=== PATIENT | female | born 1960 | race American Indian/Alaskan Native ===

== ENCOUNTER 2017-06-24 10:51 | Outpatient (CLI) | payer OTHER ==
--- NOTE | 2017-06-24 11:50 | Mammography Report ---
BILATERAL MAMMOGRAM with CAD: HISTORY: Cancer screening. Comparison study is dated May 22, 2016. FINDINGS: There are scattered fibroglandular densities (approximately 25%-50% glandular). No mass, distortion, suspicious calcification, or skin change is seen. IMPRESSION: Negative mammogram. There is no mammographic evidence of malignancy. RECOMMENDATION: Follow-up per ACS guidelines. BI-RADS CATEGORY: 1 = Negative ACR BI-RADS MAMMOGRAPHIC CODES: 0 = Needs additional imaging evaluation; 1 = Negative; 2 = Benign; 3 = Probably benign; 4 = Suspicious; 5 = Malignant; 6 = Known biopsy-proven malignancy COMMENT: 1. Dense breast tissue, i.e., adenosis, fibrocystic changes, etc., may obscure an underlying neoplasm. 2. Approximately 10% of cancers are not detected with mammography. 3. A negative mammography report should not delay biopsy if a clinically suspicious mass is present. COMMENT: Patient follow-up letters are generated in [employer].
== END 2017-06-24 10:52 | disposition home or self-care (01) ==
LOC: MAMMO 10:51
PROVIDERS: ATTEND Family Medicine
DX: Z12.31 Encounter for screening mammogram for malignant neoplasm of breast (principal)
CPT/HCPCS: 77067; G0202

== ENCOUNTER 2017-10-23 17:27 | Emergency (ER) | payer OTHER ==
[2017-10-23 18:02] VITALS: BP 170/80
--- NOTE | 2017-10-23 18:57 | Emergency Department Report ---
HPI - General Chief Complaint: Upper Respiratory Infection Time Seen by Provider: 10/23/17 18:53 - HPI HPI: Ms. Nguyen presents with fatigue, IBS symptoms and chest soreness. For 1 month she's recovered from the flu. She has jaw malaise. She has been followed by her PCP for IBS symptoms referred to a infection control practitioner. SHe is also had mild intermittent nipple soreness. Mild to moderate symptoms occurred one month ago. She just been sick for 1 month she explains. No alleviating or precipitating factors. ED Past Medical Hx - Past Medical History Hx Hypertension: Yes Hx Diabetes: Yes Hx Psychiatric Treatment: Yes (depression, PTSD) Additional medical history: High Cholesterol. Over active bladder - Surgical History Additional Surgical History: hyst. - Social History Smoking Status: Never Smoker Substance Use Type: None - Medications Home Medications: Home Medications Medication Instructions Recorded Confirmed Last Taken Type HYDROcodone/APAP 5-325 [[place] 1 each PO Q6HR PRN #14 tablet 12/30/14 Unknown Rx 5/325] Azithromycin [Zithromax Z-TREVOR] 250 mg PO DAILY #6 tab 08/12/15 Unknown Rx Promethazine /Codeine 5 ml PO Q6H PRN #120 ml 08/12/15 Unknown Rx [Phenergan/Codeine 6.25-10 mg/5Ml] ED Review of Systems ROS: Stated complaint: FLU LIKE SYMPTOMS Other details as noted in HPI Comment: All other systems reviewed and negative Constitutional: malaise, weakness. denies: fever Respiratory: denies: cough Physical Exam - Physical Exam Vital Signs: Vital Signs 10/23/17 17:56 Temperature 98.6 F Pulse Rate 81 Respiratory 20 Rate Blood Pressure 170/80 O2 Sat by Pulse 96 Oximetry Physical Exam: General: Well-appearing, no acute distress HEENT: Normocephalic atraumatic pupils equal round and reactive to light anicteric sclera Nose: no rhinorrhea Oropharynx: Clear mucous membranes no lesions Neck: supple, no meningismus Chest: Clear to auscultation bilaterally no rales rhonchi no wheezes Cardiac: Regular rate and rhythm no murmurs no rubs no gallops Abdomen: Soft nontender nondistended positive bowel sounds no guarding Extremities: No cyanosis no clubbing no edema Neuro: Moves all extremities 4, no gross deficits Psychiatric: Alert and oriented 4 normal affect normal judgment normal insight ED Course Vital Signs 10/23/17 17:56 Temperature 98.6 F Pulse Rate 81 Respiratory 20 Rate Blood Pressure 170/80 O2 Sat by Pulse 96 Oximetry ED Medical Decision Making - EKG Data 10/23/17 18:56 EKG obtained 1806 per triage protocol Rate of 75 sinus rhythm normal axis normal intervals no ST-T signs of ischemia - Medical Decision Making generalized malaise due to recent illness recovery chest soreness atypical for ACS IBS symptoms at baseline for patient Ms. Nguyen will f/u with her PCP No emergent condition currently exisits Critical care attestation.: If time is entered above; I have spent that time in minutes in the direct care of this critically ill patient, excluding procedure time. ED Disposition Clinical Impression: Malaise, IBS (irritable bowel syndrome) Disposition: DC-01 TO HOME OR SELFCARE Is pt being admited?: No Does the pt Need Aspirin: No Condition: Stable Instructions: Irritable Bowel Syndrome (ED) Referrals: PRIMARY CAREMD [Referring] - 3-5 Days Time of Disposition: 18:57
== END 2017-10-23 19:09 | disposition home or self-care (01) ==
LOC: ED 17:27
DX: R53.81 Other malaise (principal); K58.9 Irritable bowel syndrome, unspecified; I10 Essential (primary) hypertension; E11.9 Type 2 diabetes mellitus without complications
CPT/HCPCS: 93005; 93010; 99282

== ENCOUNTER 2018-10-01 13:09 | Outpatient (CLI) | payer OTHER ==
--- NOTE | 2018-10-01 14:04 | Mammography Report ---
BILATERAL MAMMOGRAM: FINDINGS: There are scattered fibroglandular densities (approximately 25%-50% glandular). No mass, distortion, suspicious calcification, or skin change is seen. There are no significant changes when compared to exams dating back to May 2016. CAD was utilized. IMPRESSION: Negative mammogram. There is no mammographic evidence of malignancy. RECOMMENDATION: Follow-up per ACS guidelines. BI-RADS CATEGORY: 1 = Negative ACR BI-RADS MAMMOGRAPHIC CODES: 0 = Needs additional imaging evaluation; 1 = Negative; 2 = Benign; 3 = Probably benign; 4 = Suspicious; 5 = Malignant; 6 = Known biopsy-proven malignancy COMMENT: 1. Dense breast tissue, i.e., adenosis, fibrocystic changes, etc., may obscure an underlying neoplasm. 2. Approximately 10% of cancers are not detected with mammography. 3. A negative mammography report should not delay biopsy if a clinically suspicious mass is present. COMMENT: Patient follow-up letters are generated in [facility].
== END 2018-10-01 13:10 | disposition home or self-care (01) ==
LOC: MAMMO 13:09
PROVIDERS: ATTEND Family Medicine
DX: Z12.31 Encounter for screening mammogram for malignant neoplasm of breast (principal); I10 Essential (primary) hypertension; Z90.710 Acquired absence of both cervix and uterus
CPT/HCPCS: 77067

== ENCOUNTER 2019-01-04 05:50 | Day surgery (SDC) | payer OTHER ==
[2019-01-04] MEDS ORDERED: LACTATED RINGERS 1,000 ML IV SCH (06:00)
[2019-01-04] MEDS ORDERED: NEURONTIN PO SCH (06:30)
[2019-01-04] MEDS ORDERED: TYLENOL PO ONE (06:30)
[2019-01-04] MEDS ORDERED: NACL BACTERIOSTATIC INFILTRATI ONE (06:30)
[2019-01-04] MEDS ORDERED: VANCOMYCIN/NS 1 GM/250 ML 1 GM/250 ML BAG IV NR (06:30)
[2019-01-04] MEDS ORDERED: XYLOCAINE MPF 2% ONE (07:17)
[2019-01-04] MEDS ORDERED: SUBLIMAZE ONE (07:17)
[2019-01-04] MEDS ORDERED: DIPRIVAN 10 MG/ML IV ONE (07:18)
[2019-01-04] MEDS ORDERED: MARCAINE 0.5% INFILTRATI ONE ×4 (07:21→22:17)
[2019-01-04] MEDS ORDERED: XYLOCAINE 1% 20 mL ONE ×2 (07:21→22:17)
[2019-01-04] MEDS ORDERED: XYLOCAINE 1%/ EPI 1:100,000 INFILTRATI ONE ×3 (07:41→08:07)
[2019-01-04] MEDS ORDERED: ZOFRAN ONE (07:53)
[2019-01-04] MEDS ORDERED: NACL 0.9% IR ONE (08:07)
[2019-01-04] MEDS ORDERED: MARCAINE-EPI 0.5%-1:200,000 INFILTRATI ONE (08:07)
[2019-01-04] MEDS ORDERED: XYLOCAINE 1% 20 mL INFILTRATI ONE (08:07)
[2019-01-04] MEDS ORDERED: SUBLIMAZE IV PRN (08:23)
--- NOTE | 2019-01-04 08:25 | Anesthesia Day of Surgery ---
Anesthesia Day of Surgery - Day of Surgery Patient Examined: Yes Patient H&P Reviewed: Yes Patient is NPO: Yes
--- NOTE | 2019-01-04 08:25 | Anesthesia Consultation ---
Anesthesia Consult and Med Hx Date of service: 01/04/19 - Airway Anesthetic Teeth Evaluation: Good ROM Head & Neck: Adequate Mental/Hyoid Distance: Adequate Mallampati Class: Class III Intubation Access Assessment: Possibly Difficult - Pulmonary Exam CTA: Yes - Cardiac Exam Cardiac Exam: RRR - Pre-Operative Health Status ASA Pre-Surgery Classification: ASA3 Proposed Anesthetic Plan: General - Pulmonary Hx Smoking: Yes (former smoker quit x2wks) Hx Respiratory Symptoms: Yes (chornic cough (no recent change)) COPD: Yes Home Oxygen Therapy: No Hx Sleep Apnea: Yes (compliant with CPAP) - Cardiovascular System Hx Hypertension: Yes (took antihypertensives yesterday AM) Hx Heart Attack/AMI: No Hx Percutaneous Transluminal Coronary Angioplasty (PTCA): No - Central Nervous System CVA: No Hx Psychiatric Problems: Yes (depression/PTSD) - Gastrointestinal Hx Gastroesophageal Reflux Disease: No - Endocrine Hx Renal Disease: No Hx Liver Disease: No Hx Insulin Dependent Diabetes: No Hx Non-Insulin Dependent Diabetes: No Hx Thyroid Disease: No - Other Systems Hx Alcohol Use: Yes (SOCIALLY) Hx Substance Use: No Hx Cancer: No Hx Obesity: Yes - Additional Comments Anesthesia Medical History Comments: No hx anesthetic complications. Plan GA w/ LMA per discussion with surgeon given location of mass.
--- NOTE | 2019-01-04 09:15 | Post Operative Note ---
Pre-op diagnosis: right neck mass Post-op diagnosis: same Findings: large collection of lipomatous masses of various sizes. densely adhered together. No dominant mass found. Procedure: right neck soft tissue mass excision IVF 800cc Anesthesia: GETA Surgeon: GREGG YA Estimated blood loss: minimal Pathology: list (lipomatous tissue from neck) Specimen disposition: to lab Condition: stable Disposition: PACU
--- NOTE | 2019-01-04 09:16 | Short Stay Summary ---
Short Stay Documentation Date of service: 01/04/19 - History H&P: obtained from office - Allergies and Medications Current Medications: Allergies ampicillin Adverse Reaction (Verified 01/03/19 17:22) Hives Home Medications Medication Instructions Recorded Confirmed Last Taken Type Aspirin [Adult Low Dose Aspirin EC] 81 mg PO DAILY 01/03/19 01/03/19 01/03/19 History AtorvaSTATin [Lipitor] 40 mg PO QHS 01/03/19 01/03/19 01/03/19 History Azelastine/Fluticasone [[place] 2 spray NS BID 01/03/19 01/03/19 01/03/19 History Nasal [place]] Budesonide/Formoterol Fumarate 2 puff IH BID 01/03/19 01/04/19 01/02/19 History [Symbicort 160-4.5 Mcg Inhaler] Cetirizine HCl [Allergy Relief] 10 mg PO DAILY 01/03/19 01/03/19 01/03/19 History Cholecalciferol Vit D3 [Vitamin D3 1,000 unit PO QDAY 01/03/19 01/03/19 01/03/19 History 1,000 UNIT TAB] Losartan/Hydrochlorothiazide 1 tab PO QDAY 01/03/19 01/03/19 01/03/19 History [Hyzaar 100-25 TAB] Oxybutynin [Ditropan] 5 mg PO DAILY 01/03/19 01/03/19 01/03/19 History Sertraline [Zoloft] 100 mg PO QDAY 01/03/19 01/03/19 01/03/19 History Topiramate [Topamax TAB] 50 mg PO BID 01/03/19 01/03/19 01/03/19 History metFORMIN [Glucophage] 500 mg PO BID 01/03/19 01/03/19 01/03/19 History Active Medications Fentanyl (Sublimaze) 50 mcg IV Q5MIN PRN PRN Reason: Pain , Severe (7-10) Lactated Ringer's (Lactated Ringers) 1,000 mls @ 75 mls/hr IV DIRECT SARAH Last Admin: 01/04/19 06:55 Dose: 75 mls/hr Documented by: - Physical exam General appearance: no acute distress Lungs: Normal air movement Neurological: Normal speech - Brief post op/procedure progress note Date of procedure: 01/04/19 (dictation:[id number]) Pre-op diagnosis: right neck soft tissue mass Post-op diagnosis: same Procedure: right neck soft tissue mass excision IVF 800cc Findings: large collection of lipomatous masses of various sizes. densely adhered together. No dominant mass found. Surgeon: GREGG YA Estimated blood loss: minimal Pathology: list (lipomatous tissue from neck) Specimen disposition: to lab Condition: stable - Disposition Condition at discharge: Stable Disposition: DC- TO HOME OR SELFCARE Short Stay Discharge Plan Activity: advance as tolerated Diet: regular Wound: open to air, keep clean and dry, other (apply ice pack for 10-15min/4-5 times a day. May shower tomorrow. Pat dry wound. ) Special Instructions: no heavy lifting (or strenuous activity for 1 week) Follow up with: GENESIS MENJIVAR MD [Primary Care Provider] - 7 Days GREGG YA MD [Staff Physician] - 14 Days Forms: Outpatient Surgery DC Inst., Work/School Release Form Prescriptions: HYDROcodone/ACETAMINOPHEN [[place] 5-325 Tablet] 1 each PO Q6H PRN #20 tablet PRN Reason: Pain , Severe (7-10)
--- NOTE | 2019-01-04 12:46 | Operative Report ---
PREOPERATIVE DIAGNOSIS: Right neck soft tissue mass. POSTOPERATIVE DIAGNOSIS: Right neck soft tissue mass. PROCEDURE: Excision of right neck soft tissue mass. FINDINGS: Large irregular lipomatous mass. There was no dominant lesion. There were multiple lobules of fat tissue that were enlarged. SPECIMEN: Large irregular mass of lipomatous tissue from the base of the neck at the right side. It was sent to pathology in multiple pieces together and in longest length the specimen was 6 cm x 5 cm x 2 cm. DRAINS: None. COMPLICATIONS: None. Stable, transferred to Recovery Room. INDICATIONS: This is a 58-year-old female, who presents with a long history of multiple soft tissue masses throughout the body. These are causing her discomfort and she would like them excised. They were indistinct. On exam, there appeared to be some component that was perhaps a little more distinct. She was felt to be in need for excision in the operating room. Procedure, risks, benefits were explained to the patient. Risks included but were not limited to infection, bleeding, pain, injury to surrounding structures, possible need for further procedures in the future. The patient understood and consented. DESCRIPTION OF THE PROCEDURE: The patient was brought to the operating room and placed in supine position. After adequate general anesthesia was established, the patient was prepped and draped in usual sterile fashion. Antibiotics have been given. SCDs were in place. Head was extended and then rotated to the left. Timeout was called. I had already marked out the skin lines and the mass in the holding area. Sharp incision was made down to the subcutaneous tissue. We then dissected both bluntly and electrocautery, the mass from the surrounding tissue, it was difficult as we did not have one dominant mass. There were multiple lobules of fat tissues that were prominent that we worked to excise. This mass was primarily underneath the end of the platysma muscle fibers, right at the junction of the neck and shoulder area. We did not go down to the deep muscle such as the trapezius or the sternocleidomastoid. We did not violate the underlying fascia. We did encounter a portion of the external jugular vein that we dissected around and the fat tissue away from. We then the surrounding attachments. In the end, there were multiple lobules of fat that were more pronounced; however, there was not one distinct mass. We removed everything that we felt was reasonable and safe and could be contributing to the mass appearance and sensation; however, I wanted to be cautious and not continue removing all the fat from the area and causing significant damage to the nerves and blood vessels in that area. Specimen was passed off table in sterile fashion. We thoroughly irrigated the wound to make sure we had good hemostasis. There was no damage to the small portion of the external jugular vein that was visible. 3-0 Vicryl was used to close the deep layer with a running stitch. Additional local was injected and then skin was closed with 4-0 Monocryl subcuticular stitch. Skin was cleaned and dried. Dermabond was placed. The patient tolerated procedure well. There were no complications. All counts were correct at the end of the case. JOB# [id number] KALYANI/DONG
--- NOTE | 2019-01-04 14:14 | Post Anesthesia Evaluation ---
- Post Anesthesia Evaluation Patient Participated: Yes Airway Patent: Yes Stable Respiratory Function: Yes Nausea/Vomiting: No Temp > 96.8F: Yes Pain Manageable: Yes Adequeate Hydration: Yes Anesthesia Complications: No
[2019-01-04 20:25] VITALS: BP 144/72
== END 2019-01-04 05:51 | disposition home or self-care (01) ==
LOC: OR 05:50
PROVIDERS: ATTEND Surgery
DX: D17.0 Benign lipomatous neoplasm of skin and subcutaneous tissue of head, face and neck (principal); M79.89 Other specified soft tissue disorders; G43.909 Migraine, unspecified, not intractable, without status migrainosus; E78.00 Pure hypercholesterolemia, unspecified; I10 Essential (primary) hypertension; E11.9 Type 2 diabetes mellitus without complications; J44.9 Chronic obstructive pulmonary disease, unspecified; G47.30 Sleep apnea, unspecified; E66.9 Obesity, unspecified; F17.210 Nicotine dependence, cigarettes, uncomplicated; M19.90 Unspecified osteoarthritis, unspecified site; F32.9 Major depressive disorder, single episode, unspecified; Z79.899 Other long term (current) drug therapy; Z88.6 Allergy status to analgesic agent; Z79.82 Long term (current) use of aspirin; Z79.84 Long term (current) use of oral hypoglycemic drugs; Z68.36 Body mass index [BMI] 36.0-36.9, adult; Z90.710 Acquired absence of both cervix and uterus; Z98.891 History of uterine scar from previous surgery; Z72.89 Other problems related to lifestyle; Z98.890 Other specified postprocedural states; Z80.3 Family history of malignant neoplasm of breast; Z88.8 Allergy status to other drugs, medicaments and biological substances
CPT/HCPCS: 21552; 82962; 88304; A4217; J2405; J2704; J3010; J3370; J7120; 88307

== ENCOUNTER 2019-01-04 18:57 | Observation (INO) | payer OTHER ==
--- NOTE | 2019-01-04 19:07 | Emergency Department Report ---
Chief Complaint: Neck Pain/Injury Stated Complaint: SWOLLEN NECK/SHOULDER Time Seen by Provider: 01/04/19 19:01 - HPI History of Present Illness: post op lipoma removal expanding hematoma left neck/shoulder area. Dr Rao sent Dr Jimenez aware shank burnisher aware mse completed MSE screening note: Focused history and physical exam performed. Due to findings the following was ordered: ED Disposition for MSE Condition: Stable
--- NOTE | 2019-01-04 19:34 | Emergency Department Report ---
Blank Doc - Documentation Documentation: 58 yo F w/ removal of lipoma by Dr Rao this morning. Pt went home and awoke with large hematoma in the area. Hematoma is currently softball-sized, originating from right trapezius area. Pt is in no respiratory distress. Dr Díaz paged. I spoke w/ her, she is aware of the patient, and will be coming in to the ED to evaluate her. Dr Díaz states no imaging necessary at this time.
[2019-01-04 19:52] LABS: Hematocrit 37.8 % (30.3-42.9); Hemoglobin 12.3 gm/dl (10.1-14.3); Mean Corpuscular HGB Conc 33 % (30-34); Mean Corpuscular Volume 89 fl (79-97); Platelet Count 178 K/mm3 (140-440); Red Blood Count 4.26 M/mm3 (3.65-5.03); Red Cell Distribution Width 14.8 % (13.2-15.2)
[2019-01-04 20:10] LABS: BUN/Creatinine Ratio 17; Blood Urea Nitrogen 12 mg/dL (7-17); Calcium 10.3 mg/dL (8.4-10.2); Hemolysis Index 24
--- NOTE | 2019-01-04 20:42 | Emergency Department Report ---
ED General Adult HPI - General Chief complaint: Neck Pain/Injury Stated complaint: SWOLLEN NECK/SHOULDER Time Seen by Provider: 01/04/19 19:01 Source: patient Mode of arrival: Ambulatory Limitations: No Limitations - History of Present Illness Initial comments: Patient is 58 years old female with history of hypertension and diabetes. Patient presented to the ER after she had a lipoma removal from the right neck area by Dr. Rao this morning. It was an outpatient surgery. Patient went home and wake him with swelling in the surgical site. Patient denied any difficulty breathing or difficulty swallowing. Patient is alert oriented 3 in no acute distress. Dr. Jimenez already spoke to Dr. Díaz, she is aware of the patient and she is coming to evaluate the patient. Severity scale (0 -10): 10 - Related Data Home Medications Medication Instructions Recorded Confirmed Last Taken Aspirin [Adult Low Dose Aspirin EC] 81 mg PO DAILY 01/03/19 01/03/19 01/03/19 AtorvaSTATin [Lipitor] 40 mg PO QHS 01/03/19 01/03/19 01/03/19 Azelastine/Fluticasone [[place]ym[place] 2 spray NS BID 01/03/19 01/03/19 01/03/19 Nasal [place]] Budesonide/Formoterol Fumarate 2 puff IH BID 01/03/19 01/04/19 01/02/19 [Symbicort 160-4.5 Mcg Inhaler] Cetirizine HCl [Allergy Relief] 10 mg PO DAILY 01/03/19 01/03/19 01/03/19 Cholecalciferol Vit D3 [Vitamin D3 1,000 unit PO QDAY 01/03/19 01/03/19 01/03/19 1,000 UNIT TAB] Losartan/Hydrochlorothiazide 1 tab PO QDAY 01/03/19 01/03/19 01/03/19 [Hyzaar 100-25 TAB] Oxybutynin [Ditropan] 5 mg PO DAILY 01/03/19 01/03/19 01/03/19 Sertraline [Zoloft] 100 mg PO QDAY 01/03/19 01/03/19 01/03/19 Topiramate [Topamax TAB] 50 mg PO BID 01/03/19 01/03/19 01/03/19 metFORMIN [Glucophage] 500 mg PO BID 0401/03/19 01/03/19 Previous Rx's Medication Instructions Recorded Last Taken Type HYDROcodone/ACETAMINOPHEN [[place] 1 each PO Q6H PRN #20 tablet 01/04/19 Unknown Rx 5-325 Tablet] Allergies Allergy/AdvReac Type Severity Reaction Status Date / Time grass pollen Allergy Unknown Verified 01/04/19 19:39 pollen extracts Allergy Unknown Verified 01/04/19 19:39 ampicillin AdvReac Hives Verified 01/04/19 19:03 ED Review of Systems ROS: Stated complaint: SWOLLEN NECK/SHOULDER Other details as noted in HPI Comment: All other systems reviewed and negative Constitutional: denies: chills, fever Cardiovascular: denies: chest pain, palpitations, dyspnea on exertion Gastrointestinal: denies: abdominal pain, nausea, diarrhea, constipation, hematemesis Skin: denies: lesions ED Past Medical Hx - Past Medical History Previous Medical History?: Yes Hx Hypertension: Yes (took antihypertensives yesterday AM) Hx Heart Attack/AMI: No Hx Diabetes: Yes (010) Hx Liver Disease: No Hx Renal Disease: No Hx Arthritis: Yes Hx Headaches / Migraines: Yes (MIGRAINES) Hx Psychiatric Treatment: Yes (depression, PTSD) Hx COPD: Yes Hx HIV: No Additional medical history: High Cholesterol. Over active bladder - Surgical History Past Surgical History?: Yes Additional Surgical History: hyst. , x 2, laparoscopy - Social History Smoking Status: Current Some Day Smoker Substance Use Type: Alcohol - Medications Home Medications: Home Medications Medication Instructions Recorded Confirmed Last Taken Type Aspirin [Adult Low Dose Aspirin EC] 81 mg PO DAILY 01/03/19 01/03/19 01/03/19 History AtorvaSTATin [Lipitor] 40 mg PO QHS 01/03/19 01/03/19 01/03/19 History Azelastine/Fluticasone [[place] 2 spray NS BID 01/03/19 01/03/19 01/03/19 History Nasal [place]] Budesonide/Formoterol Fumarate 2 puff IH BID 01/03/19 01/04/19 01/02/19 History [Symbicort 160-4.5 Mcg Inhaler] Cetirizine HCl [Allergy Relief] 10 mg PO DAILY 01/03/19 01/03/19 01/03/19 History Cholecalciferol Vit D3 [Vitamin D3 1,000 unit PO QDAY 01/03/19 01/03/19 01/03/19 History 1,000 UNIT TAB] Losartan/Hydrochlorothiazide 1 tab PO QDAY 01/03/19 01/03/19 01/03/19 History [Hyzaar 100-25 TAB] Oxybutynin [Ditropan] 5 mg PO DAILY 01/03/19 01/03/19 01/03/19 History Sertraline [Zoloft] 100 mg PO QDAY 01/03/19 01/03/19 01/03/19 History Topiramate [Topamax TAB] 50 mg PO BID 01/03/19 01/03/19 01/03/19 History metFORMIN [Glucophage] 500 mg PO BID 01/03/19 01/03/19 01/03/19 History HYDROcodone/ACETAMINOPHEN [[place] 1 each PO Q6H PRN #20 tablet 01/04/19 Unknown Rx 5-325 Tablet] ED Physical Exam - General Limitations: No Limitations General appearance: alert, in no apparent distress - Head Head exam: Present: atraumatic, normocephalic, normal inspection - ENT ENT exam: Present: normal exam, normal orophraynx, mucous membranes moist - Neck Neck exam: Present: tenderness, other (large surgical site hematoma to the right neck. No airway compromise.) - Respiratory Respiratory exam: Present: normal lung sounds bilaterally - Cardiovascular Cardiovascular Exam: Present: regular rate, normal rhythm, normal heart sounds - GI/Abdominal GI/Abdominal exam: Present: soft, normal bowel sounds. Absent: distended, tenderness, guarding, rebound, rigid, hypoactive bowel sounds, organomegaly, mass, bruit, pulsatile mass, hernia - Extremities Exam Extremities exam: Present: normal inspection, full ROM - Back Exam Back exam: Present: normal inspection, full ROM - Neurological Exam Neurological exam: Present: alert, oriented X3, CN II-XII intact, normal gait, reflexes normal - Skin Skin exam: Present: warm, intact, normal color ED Course Vital Signs 01/04/19 19:39 Temperature 98.1 F Pulse Rate 68 Respiratory 18 Rate Blood Pressure 141/69 O2 Sat by Pulse 95 Oximetry ED Medical Decision Making - Lab Data Result diagrams: 01/04/19 19:38 01/04/19 19:38 - Medical Decision Making Patient is 58 years old female with history of hypertension and diabetes. Patient presented to the ER after she had a lipoma removal from the right neck area by Dr. Rao this morning. It was an outpatient surgery. Patient went home and wake him with swelling in the surgical site. Patient denied any difficulty breathing or difficulty swallowing. Patient is alert oriented 3 in no acute distress. Dr. Jimenez already spoke to Dr. Díaz, she is aware of the patient and she is coming to evaluate the patient. Dr. Díaz in the ER Evaluating the Patient. She Decided to Take the Patient to the OR for Evacuation and Admission after That for Observation. Critical care attestation.: If time is entered above; I have spent that time in minutes in the direct care of this critically ill patient, excluding procedure time. ED Disposition Clinical Impression: Hematoma complicating a procedure Disposition: OP ADMIT IP TO THIS HOSP Is pt being admited?: Yes Condition: Stable
--- NOTE | 2019-01-04 21:11 | History and Physical Report ---
History of Present Illness Date of examination: 01/04/19 Chief complaint: swelling of right side of neck s/p excision lipoma History of present illness: 58 yo F s/p excision of lipoma of the right side of her neck today by Dr. Rao. The patient was discharged in stable condition. I had spoken with the patient over the telephone at around 6pm and sent patient to ER for evaluation of possible hematoma. She states that she had ice on the incision and fell asleep. When she awoke around 5pm she removed the ice pack and noticed that the area had swollen to 3x before lipoma excision. She reported a small amount of bleeding from the incision. Currently, she states that the area feels as if it has doubled in size since we spoke on the phone. She denies trouble breathing. No f/c. She is on ASA 81 mg at home. Past History Past Medical History: diabetes, hypertension, hyperlipidemia Past Surgical History: Other (excision lipoma right neck) Social history: no significant social history Family history: no significant family history Medications and Allergies Allergies Allergy/AdvReac Type Severity Reaction Status Date / Time grass pollen Allergy Unknown Verified 01/04/19 19:39 pollen extracts Allergy Unknown Verified 01/04/19 19:39 ampicillin AdvReac Hives Verified 01/04/19 19:03 Home Medications Medication Instructions Recorded Confirmed Last Taken Type Aspirin [Adult Low Dose Aspirin EC] 81 mg PO DAILY 01/03/19 01/03/19 01/03/19 History AtorvaSTATin [Lipitor] 40 mg PO QHS 01/03/19 01/03/19 01/03/19 History Azelastine/Fluticasone [Dymista 2 spray NS BID 01/03/19 01/03/19 01/03/19 History Nasal [place]] Budesonide/Formoterol Fumarate 2 puff IH BID 01/03/19 01/04/19 01/02/19 History [Symbicort 160-4.5 Mcg Inhaler] Cetirizine HCl [Allergy Relief] 10 mg PO DAILY 01/03/19 01/03/19 01/03/19 History Cholecalciferol Vit D3 [Vitamin D3 1,000 unit PO QDAY 01/03/19 01/03/19 01/03/19 History 1,000 UNIT TAB] Losartan/Hydrochlorothiazide 1 tab PO QDAY 0401/03/19 01/03/19 History [Hyzaar 100-25 TAB] Oxybutynin [Ditropan] 5 mg PO DAILY 01/03/19 01/03/19 01/03/19 History Sertraline [Zoloft] 100 mg PO QDAY 01/03/19 01/03/19 01/03/19 History Topiramate [Topamax TAB] 50 mg PO BID 01/03/19 01/03/19 01/03/19 History metFORMIN [Glucophage] 500 mg PO BID 01/03/19 01/03/19 01/03/19 History HYDROcodone/ACETAMINOPHEN [[place] 1 each PO Q6H PRN #20 tablet 01/04/19 Unknown Rx 5-325 Tablet] Review of Systems All systems: negative (10 pt ROS performed and negative except for that listed in HPI) Exam Vital Signs Temp Pulse Resp BP Pulse Ox 98.1 F 68 18 141/69 95 01/04/19 19:39 01/04/19 19:39 01/04/19 19:39 01/04/19 19:39 01/04/19 19:39 Narrative exam: Gen: AAOx3. NAD ENT: R sided lateral neck swelling approximately >15 cm in length with overlying ecchymosis. Mild TTP, firm. No bleeding from incision. Incision is c/d/i. Trachea midline CV: S1, S2+ resp: even and unlabored Ext: no c/c/e Results - Labs 01/04/19 19:38 01/04/19 19:38 Abnormal lab results 01/04/19 01/04/19 Range/Units 19:38 20:05 Glucose 145 H (65-100) mg/dL POC Glucose 136 H (70-105) Calcium 10.3 H (8.4-10.2) mg/dL Diabetes panel 01/04/19 Range/Units 19:38 Sodium 142 (137-145) mmol/L Potassium 4.1 (3.6-5.0) mmol/L Chloride 104.8 (98-107) mmol/L Carbon Dioxide 27 (22-30) mmol/L BUN 12 (7-17) mg/dL Creatinine 0.7 (0.7-1.2) mg/dL Glucose 145 H (65-100) mg/dL Calcium 10.3 H (8.4-10.2) mg/dL Calcium panel 01/04/19 Range/Units 19:38 Calcium 10.3 H (8.4-10.2) mg/dL Pituitary panel 01/04/19 Range/Units 19:38 Sodium 142 (137-145) mmol/L Potassium 4.1 (3.6-5.0) mmol/L Chloride 104.8 (98-107) mmol/L Carbon Dioxide 27 (22-30) mmol/L BUN 12 (7-17) mg/dL Creatinine 0.7 (0.7-1.2) mg/dL Glucose 145 H (65-100) mg/dL Calcium 10.3 H (8.4-10.2) mg/dL Adrenal panel 01/04/19 Range/Units 19:38 Sodium 142 (137-145) mmol/L Potassium 4.1 (3.6-5.0) mmol/L Chloride 104.8 (98-107) mmol/L Carbon Dioxide 27 (22-30) mmol/L BUN 12 (7-17) mg/dL Creatinine 0.7 (0.7-1.2) mg/dL Glucose 145 H (65-100) mg/dL Calcium 10.3 H (8.4-10.2) mg/dL Assessment and Plan 58 yo F with expanding hematoma of the right side of her neck s/p lipoma excision 01/04/19 Plan: 1. Admit to surgical service 2. continue NPO 3. IVF 4. Due to enlargement of hematoma in the last several hours, recommend evacuation of hematoma tonight. D/W Dr. Rao. Discussed procedure risks, benefits with patient and consent obtained. She understands 5. monitor blood glucose 6. resume home meds in am 7. Roselia BELTRAN Thank you, please call with questions.
[2019-01-04] MEDS ORDERED: TYLENOL PO PRN (21:14)
[2019-01-04] MEDS ORDERED: ZOFRAN IV PRN (21:14)
[2019-01-04] MEDS ORDERED: SODIUM CHLORIDE FLUSH SYRINGE 10 ML IV PRN (21:14)
[2019-01-04] MEDS ORDERED: NORCO 5/325 PO PRN (21:14)
[2019-01-04] MEDS ORDERED: MORPHINE IV PRN (21:14)
[2019-01-04] MEDS ORDERED: SUBLIMAZE IV PRN (21:34)
--- NOTE | 2019-01-04 21:34 | Anesthesia Day of Surgery ---
Anesthesia Day of Surgery - Day of Surgery Patient Examined: Yes Patient H&P Reviewed: Yes Patient is NPO: Yes
--- NOTE | 2019-01-04 21:34 | Anesthesia Consultation ---
Anesthesia Consult and Med Hx Date of service: 01/04/19 - Airway ROM Head & Neck: Adequate Mental/Hyoid Distance: Adequate Mallampati Class: Class III Intubation Access Assessment: Possibly Difficult - Pulmonary Exam CTA: Yes - Cardiac Exam Cardiac Exam: RRR - Pre-Operative Health Status ASA Pre-Surgery Classification: ASA3 Proposed Anesthetic Plan: General - Pulmonary Hx Smoking: Yes (former smoker quit x2wks) Hx Respiratory Symptoms: Yes (chornic cough (no recent change)) COPD: Yes Hx Sleep Apnea: Yes (compliant with CPAP) - Cardiovascular System Hx Hypertension: Yes (took antihypertensives yesterday AM) Hx Heart Attack/AMI: No Hx Percutaneous Transluminal Coronary Angioplasty (PTCA): No - Central Nervous System CVA: No Hx Psychiatric Problems: Yes (depression/PTSD) - Gastrointestinal Hx Gastroesophageal Reflux Disease: No - Endocrine Hx Renal Disease: No Hx Liver Disease: No Hx Insulin Dependent Diabetes: No Hx Non-Insulin Dependent Diabetes: No Hx Thyroid Disease: No - Other Systems Hx Alcohol Use: Yes (SOCIALLY) Hx Substance Use: No Hx Cancer: No Hx Obesity: Yes - Additional Comments Anesthesia Medical History Comments: Patient presenting s/p lipoma excision today with enlarging hematoma. No evidence of airway involvement on exam. NPO since 1200 (solids), 1900 (water).
[2019-01-04] MEDS ORDERED: LACTATED RINGERS 1,000 ML ONE (21:44)
[2019-01-04] MEDS ORDERED: DILAUDID ONE (21:56)
[2019-01-04] MEDS ORDERED: DIPRIVAN 10 MG/ML IV ONE (21:56)
[2019-01-04] MEDS ORDERED: D5/0.45NS 1,000 ML IV SCH (22:00)
[2019-01-04] MEDS ORDERED: XYLOCAINE 1% 20 mL INFILTRATI ONE (22:20)
[2019-01-04] MEDS ORDERED: MARCAINE 0.5% INFILTRATI ONE (22:20)
[2019-01-04] MEDS ORDERED: ANCEF ONE (22:42)
[2019-01-04] MEDS ORDERED: XYLOCAINE MPF 2% ONE (23:07)
[2019-01-04] MEDS ORDERED: NACL 0.9% 1000 ML 1,000 ML ONE (23:07)
[2019-01-04] MEDS ORDERED: ZOFRAN ONE (23:10)
--- NOTE | 2019-01-04 23:15 | Post Operative Note ---
Pre-op diagnosis: Hematoma of right neck Post-op diagnosis: same Findings: Bleeding from small vein in wound bed. 150cc of clotted blood evacuated Procedure: evacuation of right neck hematoma, exploration of wound with washout Anesthesia: NOHEMI, local Surgeon: JACEY RAYMOND Estimated blood loss: minimal Pathology: none Condition: stable Disposition: PACU
[2019-01-05] MEDS: SODIUM CHLORIDE FLUSH SYRINGE 10 ML IV SCH ×2 (04:36→14:09)
--- NOTE | 2019-01-05 08:51 | Progress Note ---
Assessment and Plan 58 yo F s/p evacuation of hematoma of right neck and washout, POD 1 Plan; 1. continue Khadijah drain to bulb suction - record output 2. diabetic diet 3. prn PO pain control 4. likely discharge this afternoon with drain if drain output is stable 5. drain teaching by RN Subjective Date of service: 01/05/19 Narrative: Pt seen and examined. c/o some soreness over surgical site and numbness of the first three fingers. Objective Vital Signs - 12hr 01/04/19 01/04/19 01/04/19 21:00 23:15 23:20 Temperature 97.9 F Pulse Rate 69 80 85 Respiratory 12 16 16 Rate Blood Pressure 133/73 142/61 165/76 Blood Pressure [Left] O2 Sat by Pulse 95 100 96 Oximetry 01/04/19 01/04/19 01/05/19 23:30 23:50 00:05 Temperature 98.3 F Pulse Rate 79 69 Respiratory 15 17 20 Rate Blood Pressure 179/81 151/79 Blood Pressure [Left] O2 Sat by Pulse 99 95 97 Oximetry 01/05/19 01/05/19 04:13 07:15 Temperature 99.0 F 99.8 F H Pulse Rate 80 75 Respiratory 20 19 Rate Blood Pressure 117/62 Blood Pressure 124/60 [Left] O2 Sat by Pulse 94 100 Oximetry - General physical appearance Narrative Exam: Gen: AAOx3. NAD ENT: R sided neck dressing c/d/i. KHADIJAH drain sanguenous, no clot CV; S1, S2+ resp: even and unlabored - Labs 01/04/19 19:38 01/04/19 19:38 Diabetes panel 01/04/19 Range/Units 19:38 Sodium 142 (137-145) mmol/L Potassium 4.1 (3.6-5.0) mmol/L Chloride 104.8 (98-107) mmol/L Carbon Dioxide 27 (22-30) mmol/L BUN 12 (7-17) mg/dL Creatinine 0.7 (0.7-1.2) mg/dL Glucose 145 H (65-100) mg/dL Calcium 10.3 H (8.4-10.2) mg/dL Calcium panel 01/04/19 Range/Units 19:38 Calcium 10.3 H (8.4-10.2) mg/dL Pituitary panel 01/04/19 Range/Units 19:38 Sodium 142 (137-145) mmol/L Potassium 4.1 (3.6-5.0) mmol/L Chloride 104.8 (98-107) mmol/L Carbon Dioxide 27 (22-30) mmol/L BUN 12 (7-17) mg/dL Creatinine 0.7 (0.7-1.2) mg/dL Glucose 145 H (65-100) mg/dL Calcium 10.3 H (8.4-10.2) mg/dL Adrenal panel 01/04/19 Range/Units 19:38 Sodium 142 (137-145) mmol/L Potassium 4.1 (3.6-5.0) mmol/L Chloride 104.8 (98-107) mmol/L Carbon Dioxide 27 (22-30) mmol/L BUN 12 (7-17) mg/dL Creatinine 0.7 (0.7-1.2) mg/dL Glucose 145 H (65-100) mg/dL Calcium 10.3 H (8.4-10.2) mg/dL
--- NOTE | 2019-01-05 10:49 | Event Note ---
Date: 01/05/19 Saw patient this AM. Expressed that I was sorry for this complication. She understood. she has no pain. She wants to go home. Taught her how to manage drain. Drainage in tubing is serosang. Explained to her operating findings from both cases. Will f/u in 1 week.
--- NOTE | 2019-01-05 10:52 | Short Stay Summary ---
Short Stay Documentation Date of service: 01/05/19 - History H&P: obtained from office Past Medical History: diabetes, hypertension, hyperlipidemia Past Surgical History: Other (excision lipoma right neck) Social history: no significant social history - Allergies and Medications Current Medications: Allergies grass pollen Allergy (Verified 01/04/19 19:39) Unknown pollen extracts Allergy (Verified 01/04/19 19:39) Unknown ampicillin Adverse Reaction (Verified 01/04/19 19:03) Hives Home Medications Medication Instructions Recorded Confirmed Last Taken Type Aspirin [Adult Low Dose Aspirin EC] 81 mg PO DAILY 01/03/19 01/03/19 01/03/19 History AtorvaSTATin [Lipitor] 40 mg PO QHS 01/03/19 01/03/19 01/03/19 History Azelastine/Fluticasone [Dymista 2 spray NS BID 01/03/19 01/03/19 01/03/19 History Nasal [place]] Budesonide/Formoterol Fumarate 2 puff IH BID 01/03/19 01/04/19 01/02/19 History [Symbicort 160-4.5 Mcg Inhaler] Cetirizine HCl [Allergy Relief] 10 mg PO DAILY 01/03/19 01/03/19 01/03/19 History Cholecalciferol Vit D3 [Vitamin D3 1,000 unit PO QDAY 01/03/19 01/03/19 01/03/19 History 1,000 UNIT TAB] Losartan/Hydrochlorothiazide 1 tab PO QDAY 01/03/19 01/03/19 01/03/19 History [Hyzaar 100-25 TAB] Oxybutynin [Ditropan] 5 mg PO DAILY 01/03/19 01/03/19 01/03/19 History Sertraline [Zoloft] 100 mg PO QDAY 01/03/19 01/03/19 01/03/19 History Topiramate [Topamax TAB] 50 mg PO BID 01/03/19 01/03/19 01/03/19 History metFORMIN [Glucophage] 500 mg PO BID 01/03/19 01/03/19 01/03/19 History HYDROcodone/ACETAMINOPHEN [[place] 1 each PO Q6H PRN #20 tablet 01/04/19 Unknown Rx 5-325 Tablet] Active Medications Acetaminophen (Tylenol) 650 mg PO Q4H PRN PRN Reason: Pain MILD(1-3)/Fever >100.5/YEAGER Acetaminophen/Hydrocodone Bitart ([place] 5/325) 2 each PO Q6H PRN PRN Reason: Pain, Moderate (4-6) Fentanyl (Sublimaze) 50 mcg IV Q5MIN PRN PRN Reason: Pain , Severe (7-10) Dextrose/Sodium Chloride (D5/0.45ns) 1,000 mls @ 100 mls/hr IV DIRECT [facility] Last Admin: 01/04/19 21:31 Dose: 100 mls/hr Documented by: Morphine Sulfate (Morphine) 2 mg IV Q4H PRN PRN Reason: Pain, Moderate (4-6) Ondansetron HCl (Zofran) 4 mg IV Q8H PRN PRN Reason: Nausea And Vomiting Sodium Chloride (Sodium Chloride Flush Syringe 10 Ml) 10 ml IV BID [facility] Last Admin: 01/05/19 04:36 Dose: Not Given Documented by: Sodium Chloride (Sodium Chloride Flush Syringe 10 Ml) 10 ml IV PRN PRN PRN Reason: LINE FLUSH - Physical exam General appearance: no acute distress Integumentary: other (dressing on right neck is dry) Lungs: Normal air movement Neurological: Normal speech - Hospital course Hospital course: no events after surgery last night - Disposition Condition at discharge: Stable Disposition: DC-01 TO HOME OR SELFCARE Short Stay Discharge Plan Activity: advance as tolerated Diet: regular Wound: keep clean and dry, change dressing (daily), other (record daily drain output. Strip drain 4 times a day. Sponge bath for now. apply ice to wound for 10-15min/4-5 times a day) Special Instructions: no heavy lifting (or strenuous activity with right arm.) Follow up with: YAIR JUSTICE MD [Primary Care Provider] - 7 Days GREGG YA MD [Staff Physician] - 7 Days
[2019-01-05 11:43] VITALS: BP 131/77
--- NOTE | 2019-01-05 12:32 | Operative Report ---
PREOPERATIVE DIAGNOSIS: Hematoma, right neck. POSTOPERATIVE DIAGNOSIS: Hematoma, right neck. FINDINGS: Bleeding from small vein in the wound bed, 150 mL of clotted blood evacuated. PROCEDURE: Evacuation of right neck hematoma, exploration of wound with washout. ANESTHESIA: General endotracheal anesthesia, local. SURGEON: Zakiya Díaz DO ESTIMATED BLOOD LOSS: Minimal. PATHOLOGY: None. CONDITION: Stable. DISPOSITION: To PACU. HISTORY OF PRESENT ILLNESS AND INDICATION: The patient is a 58-year-old female, who underwent excision of a soft tissue mass of her right lateral neck by Dr. Rao on 01/04/2019. The patient was discharged in stable condition. Upon waking in the late afternoon, the patient removed her ice pack and noted that the area of surgery had swollen to 3 times the size of the original. She was advised to come to the Emergency Room for further evaluation. Upon evaluation of the patient in the Emergency Room, the area had doubled in size according to the patient. On examination, it was seen to be a hematoma underlying the incision. Due to the expanding nature of the hematoma, which was reported by the patient, it was decided to take the patient to the operating room for evacuation and exploration of the wound. All risks, benefits, alternatives to surgery were discussed with the patient. Consent obtained. PROCEDURE IN DETAIL: The patient was identified in preoperative area and taken back to the operating room and placed on the operating table in supine position. After anesthesia was induced, the right neck was prepped and draped in usual sterile fashion. Timeout was performed. Local anesthetic was infiltrated into the skin at the intended incision site. The old incision was opened using a #15 blade. There was immediate identification of a large amount of dark clotted blood. The wound was probed bluntly with a gloved finger and all hematoma was evacuated. Approximately 150 mL of hematoma was evacuated by the end of the case. The hematoma had dissected through the subcutaneous tissue. The wound was explored and there was a small vein on the inferior portion of the wound and the subcutaneous tissue that was steadily bleeding. The bleeding was nonpulsatile. The vein was ligated using electrocautery. The wound was then copiously irrigated with saline. The wound bed did exhibit some oozing, which was controlled using a combination of pressure and also the placement of Rafa powder. A 10-[place] round KHADIJAH drain was placed into the wound bed and brought out through a small stab incision in the inferior portion of the wound. The drain was positioned in the subcutaneous tissue and sutured into place using a 2-0 Prolene suture. The wound was once again checked for hemostasis, which was carefully ensured. The skin was closed with interrupted vertical mattress sutures using 2-0 Prolene. The skin was cleansed and a 4 x 4 gauze was placed on the incision and around the drain. This was secured with silk tape. At the end of the case, all sponge, instrument and sharp counts were correct x 2. The KHADIJAH drain was hooked to bulb suction in the usual fashion. The patient was awoken from anesthesia and taken to PACU in stable condition. JOB# [id number] FREDY/DONG
== END 2019-01-05 13:50 | disposition home or self-care (01) ==
LOC: ED 18:57 → OR 20:49 → 3A 23:46 → EEVIPCON 23:46 → 3B-SURG 23:48
PROVIDERS: ADMIT Surgery; ATTEND Surgery
DX: S10.93XA Contusion of unspecified part of neck, initial encounter (principal); E11.9 Type 2 diabetes mellitus without complications; I10 Essential (primary) hypertension; E78.5 Hyperlipidemia, unspecified; Z79.899 Other long term (current) drug therapy; X58.XXXA Exposure to other specified factors, initial encounter; Y93.9 Activity, unspecified; Y92.9 Unspecified place or not applicable
CPT/HCPCS: 10140; 36415; 80048; 82962; 85027; 99284; G0378; J0690; J1170; J2405; J2704; J7030; J7120

== ENCOUNTER 2021-08-28 10:17 | Outpatient (CLI) | payer OTHER | END 2021-08-28 10:18 | disposition home or self-care (01) | LOC: MAMMO 10:17 → SPVWC 10:17 → MAMMO 10:18 | PROVIDERS: ATTEND Internal Medicine | DX: Z12.31 Encounter for screening mammogram for malignant neoplasm of breast (principal) | CPT/HCPCS: 77067 ==